=== PATIENT | female | born 1970 | race Caucasian/White ===

== ENCOUNTER → 2017-01-20 | Outpatient (CLI) | payer BC ==
[~2017-01-20] MED LIST: ASPIRIN 81MG TA81 MG PO; CYMBALTA60 MG PO; ESTRADIOL1 M1 PO; ESTRADIOL2 MG OR; ETODOLAC200 MG PO; FLEXERIL10 MG PO; HYDROCHLOROTHIA1 TA2 PO; MAXZIDE 25 MG-31 TAB PO; METOPROLOL 25 M25 MG PO; SLO NIACIN500 MG PO; TOPAMAX50 MG PO
--- NOTE | 2017-01-24 16:30 | RADIOLOGY REPORT PS360 ---
DIG MAMM-SCREEN JOE W/CAD CAD Screening COMPARISON: None, this is baseline INDICATION: There is no personal or family history of breast cancer. The patient currently is on estrogen TECHNIQUE: Standard CC and MLO images were obtained. R2 CAD reviewed. FINDINGS: The breasts are composed primarily of fat with scattered fibroglandular densities throughout. There is no suspicious lesion and there are no suspicious microcalcifications. There is a small node right axilla. IMPRESSION: Fibrofatty parenchyma with no suspicious lesion seen recommend yearly follow-up BI-RADS CATEGORY: 1_Negative RECOMMENDED FOLLOWUP: 12M 12 MONTH FOLLOW-UP (A letter has been sent to the patient regarding results of the study.)
== END ==
LOC: RAD 16:17
DX: Z12.31 Encounter for screening mammogram for malignant neoplasm of breast (principal); N60.19 Diffuse cystic mastopathy of unspecified breast
CPT/HCPCS: G0202